=== PATIENT | male | born 1980 | race American Indian/Alaskan Native ===

== ENCOUNTER 2018-03-03 00:56 | Emergency (ER) | payer OTHER ==
--- NOTE | 2018-03-03 02:28 | Emergency Department Report ---
Chief Complaint: Wound/Laceration Stated Complaint: BOIL - HPI History of Present Illness: 37-year-old male past medical history amputee presents with complaint of one week of worsening abscess overlying right knee joint. - ROS Review of Systems: History of right [id number] amputation - Exam Vital Signs: Vital Signs 03/03/18 01:38 Temperature 98.7 F Pulse Rate 91 H Respiratory 17 Rate Blood Pressure 107/64 O2 Sat by Pulse 99 Oximetry Physical Exam: Visible purulent drainage right anterior knee joint surrounding fluctuance that extends approximately 10 cm in diameter MSE screening note: Focused history and physical exam performed. Due to findings the following was ordered: Screening Assessment/Plan/Differential Dx: Right knee infection/cellulitis/ abscess 1- This initial assessment/diagnostic orders/clinical plan/ treatment(s) is/are subject to change based on pt's health status, clinical progression and re- assessment by fellow clinical providers in the ED. Further treatment and workup at subsequent clinical provers discretion. Patient/guardians urged not to elope from ED as their condition may be serious if not clinically assessed and managed. 2-clinical concern for potential septic arthritis as abscess is directly overlying the joint with a large visible purulent drainage 3-labs including CRP and sedimentation rate, x-ray 4-pt to be evaluated by attending physician to determine further management ED Disposition for MSE Condition: Stable
--- NOTE | 2018-03-03 03:05 | XRay Report ---
FINAL REPORT EXAM: XR KNEE 3V RT HISTORY: pain, large abscess overlying right knee COMPARISON: None available. FINDINGS: Three views the right knee obtained. There has been amputation of the foot. Deformity of the distal tibia which appears to be on a chronic basis and may be posttraumatic or developmental. Small portion the fibular remains. Nonspecific soft tissue swelling at the anterior margin of the knee and infrapatellar region. No bony erosive changes or joint effusion. IMPRESSION: Soft tissue swelling along the prepatellar and infrapatellar region. This is nonspecific and could relate to soft tissue infection.
[2018-03-03 03:21] LABS: Hematocrit 40.7 % (35.5-45.6); Hemoglobin 13.3 gm/dl (11.8-15.2); Mean Corpuscular HGB Conc 33 % (32-34); Platelet Count 370 K/mm3 (140-440); Red Cell Distribution Width 15.6 % (13.2-15.2)
[2018-03-03 03:29] LABS: Mean Corpuscular Hemoglobin 22 pg (28-32); Mean Corpuscular Volume 67 fl (84-94)
[2018-03-03 03:51] LABS: BUN/Creatinine Ratio 18; Blood Urea Nitrogen 11 mg/dL (9-20); Calcium 9.2 mg/dL (8.4-10.2); Hemolysis Index 30
[2018-03-03 04:05] LABS: Band Neutrophils # (Manual) 0.2 K/mm3; Basophils % (Manual) 0 % (0.0-1.8); Total Cells Counted 100
[2018-03-03 04:06] LABS: Hypochromasia 1+; Platelet Estimate Consistent w Auto; Target Cells Few
[2018-03-03 04:07] LABS: Erythrocyte Sedimentation Rate 12 mm/Hr (0-20)
--- NOTE | 2018-03-03 07:38 | Emergency Department Report ---
ED General Adult HPI - General Chief complaint: Wound/Laceration Stated complaint: BOIL Time Seen by Provider: 03/03/18 07:19 Source: patient Mode of arrival: Ambulatory Limitations: No Limitations - History of Present Illness Initial comments: 37-year-old male with iavme-kon-orho amputation. Patient has a prosthetic device which she states has been causing pressure on his anterior tibial surface. He noted that he had developed an ulcer. He does not describe [place]. He does not describe drainage or pus. He denies fever or chills. He has no local doctor. -: Gradual, week(s) Location: right Quality: other (uncomfortable but not complaining of pain) Consistency: intermittent Improves with: none Worsens with: none Associated Symptoms: denies other symptoms - Related Data Previous Rx's Medication Instructions Recorded Last Taken Type Sulfamethoxazole/Trimethoprim 1 each PO BID #14 tablet 03/03/18 Unknown Rx [Bactrim DS TAB] ED Review of Systems ROS: Stated complaint: BOIL Other details as noted in HPI Constitutional: denies: chills, fever Eyes: denies: eye pain, eye discharge, vision change ENT: denies: ear pain, throat pain Respiratory: denies: cough, shortness of breath, wheezing Cardiovascular: denies: chest pain, palpitations Endocrine: no symptoms reported Gastrointestinal: denies: abdominal pain, nausea, diarrhea Genitourinary: denies: urgency, dysuria Musculoskeletal: denies: back pain, joint swelling, arthralgia Skin: as per HPI, other. denies: rash, lesions Neurological: denies: headache, weakness, paresthesias Psychiatric: denies: anxiety, depression Hematological/Lymphatic: denies: easy bleeding, easy bruising ED Past Medical Hx - Past Medical History Previous Medical History?: No - Surgical History Past Surgical History?: Yes Additional Surgical History: right leg amputee - Social History Smoking Status: Never Smoker Substance Use Type: None - Medications Home Medications: Home Medications Medication Instructions Recorded Confirmed Last Taken Type Sulfamethoxazole/Trimethoprim 1 each PO BID #14 tablet 03/03/18 Unknown Rx [Bactrim DS TAB] ED Physical Exam - General Limitations: No Limitations General appearance: alert, in no apparent distress - Head Head exam: Present: atraumatic, normocephalic - Eye Eye exam: Present: normal appearance. Absent: scleral icterus - ENT ENT exam: Present: mucous membranes moist - Neck Neck exam: Present: normal inspection - Respiratory Respiratory exam: Present: normal lung sounds bilaterally. Absent: respiratory distress - Cardiovascular Cardiovascular Exam: Present: regular rate, normal rhythm. Absent: systolic murmur, diastolic murmur, rubs, gallop - GI/Abdominal GI/Abdominal exam: Present: soft, normal bowel sounds. Absent: distended, tenderness, guarding, rebound, rigid - Rectal Rectal exam: Present: deferred - Extremities Exam Extremities exam: Present: other (the patient has a 1 x 2 cm full-thickness ulcer of the left tibial tuberosity area. There is no draining pus. It does not look infected. There is no surrounding erythema. There is a bit of induration.) - Back Exam Back exam: Present: normal inspection - Neurological Exam Neurological exam: Present: alert, oriented X3, CN II-XII intact. Absent: motor sensory deficit - Psychiatric Psychiatric exam: Present: normal affect, normal mood - Skin Skin exam: Present: warm, dry, intact, normal color. Absent: rash ED Course Vital Signs 03/03/18 01:38 Temperature 98.7 F Pulse Rate 91 H Respiratory 17 Rate Blood Pressure 107/64 O2 Sat by Pulse 99 Oximetry - Reevaluation(s) Reevaluation #1: We will begin the wound care process. I will try to refer the patient to wound care through case management. I will order case management for home health assessment. Wound dressing wet to dry. 03/03/18 07:37 ED Medical Decision Making - Lab Data Result diagrams: 03/03/18 02:56 03/03/18 02:55 Laboratory Results - last 24 hr 03/03/18 03/03/18 03/03/18 02:55 02:55 02:56 WBC 10.9 RBC 6.10 H Hgb 13.3 Hct 40.7 MCV 67 L MCH 22 L MCHC 33 RDW 15.6 H Plt Count 370 Lymph # Record Center Specialist Add Manual Diff Complete Total Counted 100 Seg Neuts % (Manual) 49.0 Band Neutrophils % 2.0 Lymphocytes % (Manual) 42.0 H Reactive Lymphs % (Man) 1.0 Monocytes % (Manual) 3.0 Eosinophils % (Manual) 2.0 Basophils % (Manual) 0 Metamyelocytes % 1.0 Myelocytes % 0 Promyelocytes % 0 Blast Cells % 0 Nucleated RBC % Not Reportable Seg Neutrophils # Man 5.3 Band Neutrophils # 0.2 Lymphocytes # (Manual) 4.6 Abs React Lymphs (Man) 0.1 Monocytes # (Manual) 0.3 Eosinophils # (Manual) 0.2 Basophils # (Manual) 0.0 Metamyelocytes # 0.1 Myelocytes # 0.0 Promyelocytes # 0.0 Blast Cells # 0.0 WBC Morphology Not Reportable Hypersegmented Neuts Not Reportable Hyposegmented Neuts Not Reportable Hypogranular Neuts Not Reportable Smudge Cells Not Reportable Toxic Granulation Not Reportable Toxic Vacuolation Not Reportable Dohle Bodies Not Reportable Pelger-Huet Anomaly Not Reportable Brenda Rods Not Reportable Platelet Estimate Consistent w auto Clumped Platelets Not Reportable Plt Clumps, EDTA Not Reportable Large Platelets Not Reportable Giant Platelets Not Reportable Platelet Satelliting Not Reportable Plt Morphology Comment Not Reportable RBC Morphology Not Reportable Dimorphic RBCs Not Reportable Polychromasia Not Reportable Hypochromasia 1+ Poikilocytosis Not Reportable Anisocytosis Not Reportable Microcytosis Not Reportable Macrocytosis Not Reportable Spherocytes Not Reportable Pappenheimer Bodies Not Reportable Sickle Cells Not Reportable Target Cells Few Tear Drop Cells Not Reportable Ovalocytes Not Reportable Helmet Cells Not Reportable Echevarria-[place] Bodies Not Reportable [place] Rings Not Reportable Regan Cells Not Reportable Bite Cells Not Reportable Crenated Cell Not Reportable Elliptocytes Few Acanthocytes (Spur) Not Reportable Rouleaux Not Reportable Hemoglobin C Crystals Not Reportable Schistocytes Not Reportable Malaria parasites Not Reportable ESR 12 Kevin Bodies Not Reportable Hem Pathologist Commnt No Sodium 140 Potassium 4.2 Chloride 100.5 Carbon Dioxide 25 Anion Gap 19 BUN 11 Creatinine 0.6 L Estimated GFR > 60 BUN/Creatinine Ratio 18 Glucose 115 H Calcium 9.2 Total Creatine Kinase 126 C-Reactive Protein 1.20 Critical care attestation.: If time is entered above; I have spent that time in minutes in the direct care of this critically ill patient, excluding procedure time. ED Disposition Clinical Impression: Hx of right BKA Ulcer of right leg Qualifiers: Non-pressure ulcer stage: with fat layer exposed Qualified Code(s): L97.912 - Non-pressure chronic ulcer of unspecified part of right lower leg with fat layer exposed Disposition: DC-01 TO HOME OR SELFCARE Is pt being admited?: No Does the pt Need Aspirin: No Condition: Stable Instructions: Wound Healing and Your Diet (ED), Pressure Ulcer (ED), Chronic Wound Care (ED), Acute Wound Care (ED) Additional Instructions: Wet-to-dry dressing as the nurse will demonstrate. I will send home health out to see if you can be sent to the wound care clinic. [facility] at [facility]. Rx Bactrim. Prescriptions: Sulfamethoxazole/Trimethoprim [Bactrim DS TAB] 1 each PO BID #14 tablet Referrals: PRIMARY CARE, [Primary Care Provider] - 3-5 Days [facility] [Provider Group] - 3-5 Days [facility] [Outside] - 3-5 Days Time of Disposition: 07:40
[2018-03-03 08:17] VITALS: BP 110/70
== END 2018-03-03 08:16 | disposition home or self-care (01) ==
LOC: ED 00:56
DX: L97.912 Non-pressure chronic ulcer of unspecified part of right lower leg with fat layer exposed (principal); Z89.511 Acquired absence of right leg below knee
CPT/HCPCS: 36415; 80048; 82550; 85007; 85025; 85652; 86140; 99283; 99284

== ENCOUNTER 2022-07-14 11:06 | Emergency (ER) | payer SELFPAY ==
[2022-07-14 11:19] VITALS: BP 123/72
--- NOTE | 2022-07-14 11:23 | Event Note ---
ED Screening Note Date of service: 07/14/22 Time: 11:21 ED Screening Note: This initial assessment/diagnostic orders/clinical plan/treatment(s) is/are subject to change based on patients health status, clinical progression and re- assessment by fellow clinical providers in the ED. Further treatment and workup at subsequent clinical providers discretion. Patient/guardian urged not to elope from the ED as their condition may be serious if not clinically assessed and managed. Patient with R BKA @ age 3 with broken prosthesis and liner damage c/o stump pain. Self pay declines XR . Initial orders include:
--- NOTE | 2022-07-14 17:34 | XRay Report ---
Right tibia and fibula 3 views INDICATION: Stomach pain FINDINGS: Diffuse soft tissue swelling and possible small amount of gas in the lower leg which remain s. Soft tissue skin thickening is noted. No definite bony destructive change however if there is conc alexi for osteomyelitis MRI is recommended. Signer Name: Charlie John MD Signed: 07/14/2022 5:30 PM Workstation Name: [facility]
--- NOTE | 2022-07-14 18:23 | Emergency Department Report ---
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 He states that his prosthesis foot broke several months ago and his liner has deteriorated which is making him walk "funny." For the last 2 weeks he has had pain in the stump. It increased to the point today where he has a hard time bearing weight. Denies any fevers. No nausea vomiting or diarrhea. No trauma. - Related Data Previous Rx's Medication Instructions Recorded Last Taken Type Sulfamethoxazole/Trimethoprim 1 each PO BID #14 tablet 03/03/18 Unknown Rx [Bactrim DS TAB] Ibuprofen [Motrin 800 MG tab] 800 mg PO TID #30 tablet 08/05/18 Unknown Rx Allergies Allergy/AdvReac Type Severity Reaction Status Date / Time No Known Allergies Allergy Verified 07/14/22 11:20 ED Review of Systems ROS: Stated complaint: LEG PAIN Other details as noted in HPI Constitutional: denies: chills, fever Eyes: denies: eye pain, eye discharge, vision change ENT: denies: ear pain, throat pain Respiratory: denies: cough, shortness of breath, wheezing Cardiovascular: denies: chest pain, palpitations Endocrine: no symptoms reported Gastrointestinal: denies: abdominal pain, nausea, diarrhea Genitourinary: denies: urgency, dysuria Musculoskeletal: as per HPI Skin: other (States that he has always had "dry skin around his stump."). denies: rash Neurological: denies: headache, weakness, paresthesias Psychiatric: denies: anxiety, depression Hematological/Lymphatic: denies: easy bleeding, easy bruising ED Past Medical Hx - Past Medical History Additional medical history: Right foot amputation - Surgical History Additional Surgical History: right leg amputee - Social History Smoking Status: Current Every Day Smoker Substance Use Type: None - Medications Home Medications: Home Medications Medication Instructions Recorded Confirmed Last Taken Type Sulfamethoxazole/Trimethoprim 1 each PO BID #14 tablet 03/03/18 Unknown Rx [Bactrim DS TAB] Ibuprofen [Motrin 800 MG tab] 800 mg PO TID #30 tablet 08/05/18 Unknown Rx ED Physical Exam - General Limitations: Physical Limitation General appearance: alert, in no apparent distress - Head Head exam: Present: atraumatic, normocephalic - Eye Eye exam: Present: normal appearance - ENT ENT exam: Present: mucous membranes moist - Neck Neck exam: Present: normal inspection - Respiratory Respiratory exam: Present: normal lung sounds bilaterally. Absent: respiratory distress - Cardiovascular Cardiovascular Exam: Present: regular rate, normal rhythm. Absent: systolic murmur, diastolic murmur, rubs, gallop - GI/Abdominal GI/Abdominal exam: Present: soft, normal bowel sounds - Rectal Rectal exam: Present: deferred - Extremities Exam Extremities exam: Present: normal inspection - Expanded Lower Extremity Exam Right Knee exam: Present: full ROM. Absent: tenderness, swelling Lower Leg exam: Present: tenderness (At distal end of the stump), abrasion (Versus hyperkeratinization due to friction. There is no erythema swelling or warmth. No drainage.). Absent: swelling - Back Exam Back exam: Present: normal inspection - Neurological Exam Neurological exam: Present: alert, oriented X3 - Psychiatric Psychiatric exam: Present: normal affect, normal mood - Skin Skin exam: Present: warm, dry, intact, normal color. Absent: rash ED Course Vital Signs 07/14/22 11:17 Temperature 99.1 F Pulse Rate 80 Respiratory 18 Rate Blood Pressure 123/72 [Right] O2 Sat by Pulse 100 Oximetry ED Lower Extremity MDM - Radiology Data Radiology results: report reviewed, image reviewed interpreted by me: [facility] [address] [place] [address] XRay Report Signed Patient: LADAN REYES MR#: [id number] : 1980 Acct:[id number] Age/Sex: 41 / M ADM Date: 07/14/22 Loc: ED Attending Dr: Ordering Physician: BEVERLY MAX Date of Service: 07/14/22 Procedure(s): XR tibia fibula 2V RT Accession Number(s): [id number] cc: BEVERLY MAX Fluoro Time In Minutes: Right tibia and fibula 3 views INDICATION: Stomach pain FINDINGS: Diffuse soft tissue swelling and possible small amount of gas in the lower leg which remains. Soft tissue skin thickening is noted. No definite bony destructive change however if there is concern for osteomyelitis MRI is recommended. Signer Name: Charlie John MD Signed: 07/14/2022 5:30 PM Workstation Name: [id number] Transcribed By: BRIANDA Dictated By: JOAN JOHN MD Electronically Authenticated By: JOAN JOHN MD Signed Date/Time: 07/14/221729 DD/ 28 TD/TT: - Medical Decision Making Patient is an amputee of the right foot at age 3 with pain to the distal stump. X-ray results reveal possible osteomyelitis. Case discussed with Dr. Juan Miguel Le. Given the fact that we do not have orthopedics sporting goods salesperson tonight, we will need to transfer the patient out. I discussed with the patient, and he declines transport. He states he has been here too long and he will report to another hospital tomorrow. He is concerned about his car being here. He did sign out AGAINST MEDICAL ADVICE. I did have a long discussion with him regarding the absolute need to seek care within the next 24 hours at either [facility] or [facility]. He verbalizes understanding of same. [facility] [address] [place] [address] XRay Report Signed Patient: LADAN REYES MR#: [id number] : 1980 Acct:[id number] Age/Sex: 41 / M ADM Date: 07/14/22 Loc: ED Attending Dr: Ordering Physician: BEVERLY MAX Date of Service: 07/14/22 Procedure(s): XR tibia fibula 2V RT Accession Number(s): [id number] cc: BEVERLY MAX Fluoro Time In Minutes: Right tibia and fibula 3 views INDICATION: Stomach pain FINDINGS: Diffuse soft tissue swelling and possible small amount of gas in the lower leg which remains. Soft tissue skin thickening is noted. No definite bony destructive change however if there is concern for osteomyelitis MRI is recommended. Signer Name: Charlie John MD Signed: 07/14/2022 5:30 PM Workstation Name: [id number] Transcribed By: BRIANDA Dictated By: JOAN JOHN MD Electronically Authenticated By: JOAN JOHN MD Signed Date/Time: 07/14/221729 DD/ 1729 TD/TT: Critical care attestation.: If time is entered above; I have spent that time in minutes in the direct care of this critically ill patient, excluding procedure time. ED Disposition Clinical Impression: Leg pain, Amputation stump pain Disposition: LEFT AGAINST MEDICAL ADVICE Is pt being admited?: No Condition: Stable Time of Disposition: 08:00
== END 2022-07-14 23:59 | disposition left against medical advice (07) ==
LOC: ED 11:06
DX: M79.604 Pain in right leg (principal); F17.200 Nicotine dependence, unspecified, uncomplicated
CPT/HCPCS: 99283